=== PATIENT | female | born 1960 | race Caucasian/White ===

== ENCOUNTER 2019-03-14 11:37 | Day surgery (SDC) | payer OTHER ==
[~2019-03-14 11:37] MED LIST: PROPOFOL 200 MG INJ
[2019-03-14] MEDS ORDERED: LIDOCAINE 2% (SDV) 5 ML INJ (13:46)
[2019-03-14] MEDS ORDERED: PROPOFOL 40 ML (13:46)
[2019-03-14] MEDS ORDERED: ALBUTEROL 0.083% (NEB) 2.5 MG/3 ML AMP HHN (14:00)
[2019-03-14] MEDS ORDERED: FENTAnyl 50 MCG/ML VIAL IV (14:00)
[2019-03-14] MEDS ORDERED: ACETAMINOPHEN 500 MG TAB PO (14:00)
[2019-03-14] MEDS ORDERED: ONDANSETRON 4 MG INJ IV (14:00)
== END 2019-03-14 17:58 | disposition home or self-care (01) ==
LOC: GIL 11:37
DX: Z12.11 Encounter for screening for malignant neoplasm of colon (principal); K64.8 Other hemorrhoids; K57.30 Diverticulosis of large intestine without perforation or abscess without bleeding; I10 Essential (primary) hypertension; J45.909 Unspecified asthma, uncomplicated
CPT/HCPCS: 45380; 88305